=== PATIENT | female | born 1950 | race Caucasian/White ===

== ENCOUNTER → 2017-12-21 | Outpatient (CLI) | payer OTHER | END | disposition home or self-care (01) | LOC: SCT 11:30 | PROVIDERS: ATTEND Orthopaedic Surgery | DX: M19.072 Primary osteoarthritis, left ankle and foot (principal) | CPT/HCPCS: 73700-TC ==

== ENCOUNTER 2019-06-05 06:02 | Emergency (ER) | payer OTHER ==
[~2019-06-05] VITALS: Ht 165.1 cm; Wt 68.0 kg
[2019-06-05 06:10] VITALS: BP_SYST 154
[2019-06-05] MEDS ORDERED: IPRATROPIUM/ALBUTEROL SULFATE 3 ML AMPUL.NEB (DUONEB) INH ONE (06:30)
[2019-06-05] MEDS ORDERED: methylPREDNISolone SOD SUCC/PF 62.5 MG/ML VIAL IVP ONE (06:30)
[2019-06-05 07:09] LABS: BASOPHILS # (AUTO) 0.1 K/uL (0.0-0.2); BASOPHILS % (AUTO) 0.8 % (0.0-2.0); EOSINOPHILS # (AUTO) 0.3 K/uL (0.0-0.4); EOSINOPHILS % (AUTO) 2.1 % (0.0-4.0); HEMATOCRIT 40.8 % (36-48); HEMOGLOBIN 13.9 g/dL (12.0-16.0); LYMPHOCYTES # (AUTO) 1.3 K/uL (1.0-5.5); LYMPHOCYTES % (AUTO) 8.4 % (20.5-51.5); MEAN CORPUSCULAR HEMOGLOBIN 32 pg (27-31); MEAN CORPUSCULAR HGB CONC 34 % (32-36); MEAN CORPUSCULAR VOLUME 94 fL (79.0-98.0); MONOCYTES # (AUTO) 1.5 K/uL (0.0-1.0); MONOCYTES % (AUTO) 9.8 % (1.7-9.3); NEUTROPHILS # (AUTO) 11.8 K/uL (1.8-7.7); NEUTROPHILS % (AUTO) 78.9 % (40.0-70.0); PLATELET COUNT (AUTO) 318 K/uL (130-430); RED BLOOD CELL COUNT(AUTO) 4.35 MIL/uL (4.2-6.2)
[2019-06-05 07:27] LABS: CALCIUM 9.3 mg/dL (8.4-11.0); CREATININE 0.74 mg/dL (0.55-1.30); POTASSIUM 3.4 mmol/L (3.5-5.1)
[2019-06-05 07:33] LABS: ALBUMIN 3.5 g/dL (3.4-4.8); TOTAL BILIRUBIN 0.7 mg/dL (0.0-1.0)
[2019-06-05] MEDS ORDERED: NACL 0.9% 1,000 ML IV ONE (08:00)
[2019-06-05] MEDS ORDERED: ALBUTEROL SULFATE 0.083% 2.5 MG/3 ML VIAL.NEB INH ONE (08:15)
[2019-06-05] MEDS ORDERED: IOHEXOL 350 mgI/mL, 150 ML INFUS..BTL IV ONE (08:37)
[2019-06-05] MEDS ORDERED: cefTRIAXone 1 GM in D5W 50 ML IV ONE (09:30)
[2019-06-05] MEDS ORDERED: AZITHROMYCIN 250 MG TABLET PO ONE (09:30)
[2019-06-05] MEDS ORDERED: cefTRIAXone 1 GM VIAL ONE (09:51)
[2019-06-05 10:47] VITALS: BP_SYST 133
== END 2019-06-05 10:47 | disposition home or self-care (01) ==
LOC: SED 06:02
DX: J18.9 Pneumonia, unspecified organism (principal); Z88.5 Allergy status to narcotic agent; Z90.49 Acquired absence of other specified parts of digestive tract
CPT/HCPCS: 36415; 71045; 71275; 80053; 83605; 83880; 84484; 85025; 85379; 87040; 93005; 94640; 96365; 96375; 99284; J0696; J2930; J7030; J7613; J7620; Q0144; Q9967

== ENCOUNTER 2019-09-14 15:34 | Emergency (ER) | payer OTHER, MEDICARE ==
[~2019-09-14] VITALS: Ht 165.1 cm; Wt 77.1 kg
[2019-09-14 15:44] VITALS: BP_SYST 160
--- NOTE | 2019-09-14 16:05 | NUR ---
Patient to ER bed 2 to gown for evaluation. Side rails up. Report given to GODWIN Connor.
--- NOTE | 2019-09-14 16:09 | NUR ---
Patient is awake, alert, and oriented x4. Patient is complaining of headache getting worse over the past 2 weeks. She reports it started 6 months ago, had a CT head that was negative. Headache has been intermittent, currently throbbing at 5/10, turns into sharp. 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
--- NOTE | 2019-09-14 16:47 | NUR ---
Patient left without being seen.
== END 2019-09-14 16:47 | disposition left against medical advice (07) ==
LOC: SED 15:34
DX: R51 Headache (principal); Z53.21 Procedure and treatment not carried out due to patient leaving prior to being seen by health care provider

== ENCOUNTER 2020-07-07 10:09 | Emergency (ER) | payer OTHER, MEDICARE ==
[~2020-07-07] VITALS: Ht 165.1 cm; Wt 72.6 kg
[2020-07-07 10:09] VITALS: BP_SYST 151
[2020-07-07] MEDS: ASPIRIN 325 MG TABLET PO ONE (10:44)
[2020-07-07] MEDS: ENOXAPARIN SODIUM 80 MG/0.8 ML SYRINGE SUBCUT ONE (10:44)
[2020-07-07] MEDS: NITROGLYCERIN 1 INCH (GM) OINT. TP ONE (10:46)
[2020-07-07 11:00] LABS: BASOPHILS # (AUTO) 0.1 K/uL (0.0-0.2); EOSINOPHILS # (AUTO) 0.1 K/uL (0.0-0.4); EOSINOPHILS % (AUTO) 0.9 % (0.0-4.0); HEMATOCRIT 43.9 % (36-48); HEMOGLOBIN 15.2 g/dL (12.0-16.0); LYMPHOCYTES # (AUTO) 1.4 K/uL (1.0-5.5); LYMPHOCYTES % (AUTO) 18.6 % (20.5-51.5); MEAN CORPUSCULAR HEMOGLOBIN 32 pg (27-31); MEAN CORPUSCULAR HGB CONC 35 % (32-36); MEAN CORPUSCULAR VOLUME 93 fL (79.0-98.0); MONOCYTES # (AUTO) 0.7 K/uL (0.0-1.0); MONOCYTES % (AUTO) 9.1 % (1.7-9.3); NEUTROPHILS # (AUTO) 5.4 K/uL (1.8-7.7); NEUTROPHILS % (AUTO) 70.4 % (40.0-70.0); PLATELET COUNT (AUTO) 272 K/uL (130-430); RED BLOOD CELL COUNT(AUTO) 4.74 MIL/uL (4.2-6.2); RED CELL DISTRIBUTION WIDTH 13.3 % (9.0-15.0); WHITE BLOOD COUNT (AUTO) 7.7 K/uL (4.8-10.8)
[2020-07-07] MEDS ORDERED: NITROGLYCERIN 1 INCH (GM) OINT. ONE (11:09)
[2020-07-07 11:11] LABS: ANION GAP 6 (5-15); CALCIUM 9.6 mg/dL (8.4-11.0); CHLORIDE 105 mmol/L (98-107); CREATININE 0.88 mg/dL (0.55-1.30); GLUCOSE 96 mg/dL (70-99); POTASSIUM 3.3 mmol/L (3.5-5.1); SODIUM SERUM 139 mmol/L (136-145); UREA NITROGEN, BLOOD 17 mg/dL (8-21)
[2020-07-07 11:16] LABS: ALANINE AMINOTRANSFERASE 21 U/L (12-78); ALBUMIN 3.9 g/dL (3.4-4.8); ASPARTATE AMINOTRANSFERASE 22 U/L (10-37); TOTAL BILIRUBIN 0.6 mg/dL (0.0-1.0)
[2020-07-07 11:17] LABS: PROTHROMBIN TIME 9.8 SECS (9.5-12.5)
[2020-07-07] MEDS: POTASSIUM CHLORIDE 20 MEQ/PKT PACKET PO ONE (11:53)
[2020-07-07 14:43] VITALS: BP_SYST 140
[2020-07-07] MEDS ORDERED: ONDANSETRON HCL 4 MG/2 ML VIAL IVP PRN (16:00)
[2020-07-07] MEDS ORDERED: LORazepam 2 MG/ML VIAL IVP PRN (16:00)
[2020-07-07] MEDS ORDERED: ACETAMINOPHEN 325 MG TABLET PO PRN (16:00)
[2020-07-07] MEDS ORDERED: NORMAL SALINE 5 ML DISP.SYRIN IVF SCH ×2 (22:00)
== END 2020-07-07 14:43 | disposition home or self-care (01) ==
LOC: SED 10:09 → STU 13:15 → UNDOADMOB 13:15 → STU 13:31 → UNDODISOB 14:40 → STU 14:43
DX: I20.9 Angina pectoris, unspecified (principal); Z88.5 Allergy status to narcotic agent; Z88.8 Allergy status to other drugs, medicaments and biological substances; Z20.828 Contact with and (suspected) exposure to other viral communicable diseases
CPT/HCPCS: 36415; 71045; 71275; 80053; 83880; 84484; 85025; 85379; 85610; 85730; 87426; 96372; 99291; J1650; 99285; G0378

== ENCOUNTER 2022-07-04 19:59 | Emergency (ER) | payer OTHER, MEDICARE ==
[~2022-07-04] VITALS: Ht 165.1 cm; Wt 72.6 kg
[2022-07-04 20:07] VITALS: BP_SYST 157
--- NOTE | 2022-07-04 20:30 | NUR ---
Patient to ER bed 08 to gown for evaluation. Side rails up.
--- NOTE | 2022-07-04 20:30 | NUR ---
Report given to Daphne CONNELLY
[2022-07-04] MEDS ORDERED: fentaNYL CITRATE/PF 100 MCG/2 ML AMP IM ONE (20:45)
--- NOTE | 2022-07-04 20:47 | NUR ---
AT BEDSIDE. PT C/O ABD PAIN AND DIARRHEA X9 DAYS. PAIN HAS BECOME INTOLERABLE. PT DENIES ANY CHANGE IN DIET. PT HAS ALLERGY TO MORPHINE PT AMBULATES, WITH PAIN PRESENT. DUEING ASSESSMENT PT ACTIVELY GRIMACING. PT TAKEN TO CT
[2022-07-04 20:56] LABS: BILIRUBIN,URINE NEGATIVE (NEGATIVE); BLOOD, URINE 2+ (NEGATIVE); CLARITY/URINE CLEAR (CLEAR); COLOR,URINE YELLOW (YELLOW); GLUCOSE,URINE NEGATIVE (NEGATIVE); KETONES,URINE NEGATIVE (NEGATIVE); LEUKOCYTE ESTERASE ,URINE NEGATIVE (NEGATIVE); NITRITE, URINE NEGATIVE (NEGATIVE); PROTEIN URINE NEGATIVE (NEGATIVE); UROBILINOGEN,URINE 0.2 (0.2-1.0)
[2022-07-04 21:09] LABS: BACTERIA,URINE FEW /HPF (None Seen); MUCUS,URINE None Seen /LPF (None Seen); WBC,URINE 0-3 /HPF (0-3)
--- NOTE | 2022-07-04 21:17 | NUR ---
PT PLACED ON 2 L NC FOR COMFORT DUE TO PAIN LEVEL. MEDICATIONS ADMINISTERED PER MD ORDER PT ON FOOD AND BEVERAGE ANALYST VSS
[2022-07-04 21:24] LABS: BASOPHILS % (AUTO) 0.2 % (0.0-2.0); EOSINOPHILS % (AUTO) 0.3 % (0.0-4.0); HEMATOCRIT 41.2 % (36-48); LYMPHOCYTES # (AUTO) 1.2 K/uL (1.0-5.5); LYMPHOCYTES % (AUTO) 8.5 % (20.5-51.5); MEAN CORPUSCULAR HEMOGLOBIN 32 pg (27-31); MEAN CORPUSCULAR HGB CONC 34 % (32-36); MEAN CORPUSCULAR VOLUME 92 fL (79.0-98.0); MONOCYTES # (AUTO) 1.3 K/uL (0.0-1.0); NEUTROPHILS # (AUTO) 11.4 K/uL (1.8-7.7); PLATELET COUNT (AUTO) 273 K/uL (130-430); RED BLOOD CELL COUNT(AUTO) 4.46 MIL/uL (4.2-6.2); WHITE BLOOD COUNT (AUTO) 13.9 K/uL (4.8-10.8)
[2022-07-04 21:32] LABS: ANION GAP 9 (5-15); CALCIUM 9.8 mg/dL (8.4-11.0); CHLORIDE 103 mmol/L (98-107); CREATININE 0.85 mg/dL (0.55-1.30); GLUCOSE 103 mg/dL (70-99); POTASSIUM 3.7 mmol/L (3.5-5.1); SODIUM SERUM 140 mmol/L (136-145); UREA NITROGEN, BLOOD 11 mg/dL (8-21)
[2022-07-04 21:45] LABS: ALANINE AMINOTRANSFERASE 17 U/L (12-78); AMYLASE 39 U/L (0-100); ASPARTATE AMINOTRANSFERASE 16 U/L (10-37); C-REACTIVE PROTEIN QUANT 1.1 mg/dL (0-0.5); LACTATE DEHYDROGENASE 195 U/L (81-234); LIPASE 42 U/L (73-393); TOTAL BILIRUBIN 0.6 mg/dL (0.0-1.0)
[2022-07-04] MEDS ORDERED: AMOX-423 PO (22:05)
[2022-07-04] MEDS ORDERED: IBUP-1969 PO (22:05)
[2022-07-04] MEDS ORDERED: IBUPROFEN 600 MG TABLET PO ONE (22:15)
[2022-07-04] MEDS ORDERED: AMOXICILLIN/CLAVULANATE POTASSIUM 875 MG TABLET PO ONE (22:15)
[2022-07-04 22:42] VITALS: BP_SYST 139
--- NOTE | 2022-07-04 22:46 | NUR ---
GODWIN ORTEGA PT CLEARED FOR DC BY PT ADVISED TO FOLLOW UP WITH PCP PT ADVISED TO RETURN TO THE ED IF S/S WORSEN PT VERBALIZED UNDERSTANDING OF DC TEACHINGS PT AMBUKTAORY WITH STEADY GAIT VSS NAD
== END 2022-07-04 22:45 | disposition home or self-care (01) ==
LOC: SED 19:59
DX: K57.92 Diverticulitis of intestine, part unspecified, without perforation or abscess without bleeding (principal); R10.84 Generalized abdominal pain; R19.7 Diarrhea, unspecified; Z88.5 Allergy status to narcotic agent; Z88.6 Allergy status to analgesic agent; Z88.8 Allergy status to other drugs, medicaments and biological substances; Z79.899 Other long term (current) drug therapy
CPT/HCPCS: 99284; 74176; 80053; 81000; 82150; 83615; 83690; 85025; 86140; 84484; 36415; 76376; 96372; 83605; J3010